=== PATIENT | male | born 1995 | race Caucasian/White ===

== ENCOUNTER 2016-05-21 18:00 | Emergency (ER) | payer SELFPAY ==
[2016-05-21 18:13] VITALS: RESP 16; TEMP 102.2
[2016-05-21] MEDS ORDERED: IBUPROFEN 600 MG TABLET PO ONE (18:15)
--- NOTE | 2016-05-21 23:30 | PDOC ---
Upper Respiratory HPI - General Chief Complaint: Cough / URI Stated Complaint: BODY ACHES AND URI S/S X 3 DAYS Date Seen by Provider: 05/21/16 Time Seen by Provider: 18:10 Source: POSITIVE: Patient Exam Limitations: POSITIVE: No limitations Nurse's Notes Reviewed & Considered: Yes - History of Present Illness Initial Comments: The patient is a 20-year-old male who presents to the emergency department with fever and chills, congestion and cough. He had onset of symptoms approximately 2 days ago. His cough initially seemed to be getting a little better however worsened today. His cough is occasionally productive although mostly dry. He had some nausea and vomiting for the first couple of days after onset of symptoms however this seems to be better today. He has been able to tolerate drinking liquids today. He does have associated muscle and joint aches. He has had some sore throat as well. He denies any history of asthma or other lung disease. He does smoke. - Patient Home Medications Home Medications: Home Medications Azithromycin [Zithromax] 250 mg PO DAILY #6 tab 05/21/16 Oseltamivir Phosphate [Tamiflu] 75 mg PO BID #10 capsule 05/21/16 guaiFENesin/Codeine Liquid [Robitussin AC Liquid] 5 - 10 ml PO Q6H PRN #120 ml 05/21/16 - Patient Allergies Allergies/Adverse Reactions: Allergies Allergy/AdvReac Type Severity Reaction Status Date / Time No Known Allergies Allergy Verified 05/21/16 18:05 Past Medical History - heen HEENT History: Denies History Cardiovascular History: Denies History Respiratory History: Denies History Gastrointestinal History: Denies History Genitourinary History: Denies History Endocrine History: Denies History Musculoskeletal History: Other (please comment) Prosthesis or Implant: No Additional Musculoskeletal History: L WRIST FX Neurological History: Denies History Blood Disorders: Denies History Psychiatric History: Denies History History of Sexually Transmitted Diseases: No Cancer History: Denies History In Past Year Been Physically Harmed or Verbally Threatened: No History of MDRO: No History of Other Communicable Diseases: No Tobacco Use: Current Every Day Smoker Alcohol Use: Rarely Substance Use Type: Marijuana Previous Surgical History: No Significant Family History: No pertinent family hx Past Medical History Reviewed: Reviewed - No Changes ROS - Limitations ROS Limitations: No Limitations Constitution: REPORTS: Chills, Fever Cardiovascular: REPORTS: Denies Cardiac Symptoms Respiratory: REPORTS: Cough Non Productive, Cough Productive. DENIES: Shortness Of Breath Neurological: REPORTS: Denies Neuro Symptoms Gastrointestinal: REPORTS: Nausea, Vomitting (Resolved over the last 24 hours) Endocrine: REPORTS: Fatigue Musculoskeletal: REPORTS: Joint Pain, Muscle Aches Eyes: REPORTS: Denies Symptoms ENT: REPORTS: Denies Symptoms Skin: DENIES: Rash Upper Respiratory/Fever Exam - General Appearance General Appearance: REPORTS: Alert, Cooperative, No Acute Distress - HEENT HEENT: POSITIVE: Head Inspection Nml, Eyes Inspection Nml, Ears Inspection Nml, Pharyngeal Erythema. NEGATIVE: Pharyngeal Exudate - Neck Neck: REPORTS: Normal Inspection. DENIES: Lymphadenopathy - Respiratory Respiratory: REPORTS: No Respiratory Distress, Breath Sounds Normal - Abdomen Abdomen: Soft: (All Quadrants), Denies Tenderness: (All Quadrants), No Distention: (All Quadrants) - Cardiovascular Cardiovascular: REPORTS: Regular Rate and Rhythm, Heart Sounds Normal Peripheral Pulses: Dorsalis-pedis (R): 2+, Dorsalis-pedis (L): 2+ - Skin Skin: REPORTS: Intact, No Rash - Extremities Extremity: Normal ROM: (All Extremities), Normal Inspection: (All Extremities) - Neurological / Psychological Neurological: POSITIVE: Oriented X3, Motor Normal, Sensation Normal Upper Resp/Fever Progress - Patient's Progress MDM / ED Course: The patient's clinical presentation is very consistent with influenza. Vital signs are stable other than elevated temperature. He was given a dose of ibuprofen 600 mg here in the emergency department for fever. He will be treated empirically with Tamiflu for treatment of influenza. In addition he does have a history of smoking and his cough has worsened over the past 24 hours. He was started on Zithromax 500 mg today followed by 250 mg daily for 4 days. He was given a prescription for Robitussin with codeine as needed for cough. He is advised to push fluids. He is advised return to the emergency room if he develops increased shortness of breath, dehydration, any worsening or change in symptoms. He'll follow-up with primary care if no improvement in 3 -5 days. - Consult Counseled: POSITIVE: Patient, RE: DX, RE: Need for F/U Patient Care Time - Estimated PCT Patient Care Time (In Minutes): 10 Vital Signs - VS Reviewed Vital Signs Reviewed: Yes Discharge Clinical Impression: Influenza, Bronchitis Condition: Stable Prescriptions / Orders: guaiFENesin/Codeine Liquid [Robitussin AC Liquid] 5 - 10 ml PO Q6H PRN #120 ml PRN Reason: Cough Oseltamivir Phosphate [Tamiflu] 75 mg PO BID #10 capsule Azithromycin [Zithromax] 250 mg PO DAILY #6 tab Patient Instructions Given at Discharge: Influenza (ED), Acute Bronchitis (ED) Additional Instructions: Your symptoms are very consistent with influenza and your be treated for this with Tamiflu 75 mg twice a day for 5 days. In addition he may have some bronchitis or early pneumonia and your started on Zithromax 500 mg today followed by 250 mg daily for 4 days. Recommend ibuprofen 600 mg every 6 hours as needed for pain/fever. Push fluids. He was also prescribed Robitussin with codeine which he can take one or 2 teaspoons every 6 hours as needed for cough. Return to the emergency room if increased shortness of breath, dehydration, any worsening or change in symptoms. Follow Up With: NONE,NONE [Primary Care Provider] -
== END 2016-05-21 18:26 | disposition home or self-care (01) ==
LOC: ER 18:00
DX: J09.X2 Influenza due to identified novel influenza A virus with other respiratory manifestations (principal); J20.9 Acute bronchitis, unspecified; R05 Cough; R11.2 Nausea with vomiting, unspecified
CPT/HCPCS: 99282

== ENCOUNTER 2016-08-11 21:24 | Emergency (ER) | payer OTHER ==
[2016-08-11] MEDS ORDERED: Sodium Chloride 0.9% 1,000 ML PRIMARY IV ONE ×2 (21:40→22:03)
[2016-08-11] MEDS ORDERED: ONDANSETRON 4 MG/2 ML VIAL IVP ONE ×2 (21:41→22:03)
[2016-08-11 22:02] LABS: BASOPHILS # (AUTO) 0.07 10*3/UL; BASOPHILS % (AUTO) 1.1 % (0-1); EOSINOPHILS # (AUTO) 0.54 10*3/UL; EOSINOPHILS % (AUTO) 8.2 % (0-8); HEMATOCRIT 43.1 % (42.0-52.0); HEMOGLOBIN 15.5 g/dL (14.0-18.0); LYMPHOCYTES # (AUTO) 1.87 10*3/uL; MEAN CORPUSCULAR HEMOGLOBIN 32.6 PG (27-31); MEAN CORPUSCULAR VOLUME 90.7 FL (80-90); MEAN PLATELET VOLUME 10.9 FL (7.4-12.2); MONOCYTES # (AUTO) 0.56 10*3/UL (0.3-0.8); MONOCYTES % (AUTO) 8.5 % (5-15); NEUTROPHILS # (AUTO) 3.54 10*3/UL; NEUTROPHILS % (AUTO) 53.6 % (50-80); PLATELET MORPHOLOGY COMMENT NORMAL MORPHOLOGY (NORM); RBC MORPHOLOGY COMMENT NORMAL MORPHOLOGY (NORM); RED BLOOD COUNT 4.75 10^6/uL (4.70-6.10); WBC MORPHOLOGY COMMENT NORMAL MORPHOLOGY (NORM)
[2016-08-11] MEDS ORDERED: KETOROLAC 15 MG/1 ML VIAL IVP ONE (22:03)
[2016-08-11 22:07] LABS: BLOOD UREA NITROGEN 16 mg/dL (7-22); CALCIUM 9.3 mg/dL (8.7-10.7); EST GLOMERULAR FILTRATION > 60 (>60 ml/min/1.73m(2)); SERUM ALBUMIN 4.6 g/dL (3.5-4.8)
--- NOTE | 2016-08-11 22:12 | PDOC ---
Gen Adult / Medical Screen HPI - General Chief Complaint: General Medical Stated Complaint: Fevers/Nausea Date Seen by Provider: 08/11/16 Time Seen by Provider: 22:06 Source: POSITIVE: Patient Exam Limitations: POSITIVE: No limitations Nurse's Notes Reviewed & Considered: Yes - Indicators Temperature Between 95 and 101 Degrees: Yes Respirations Between 12 and 20: Yes Blood Pressure Between 100-165 (sys) and 60-100 (martinez): Yes Pulse Range Between 60-105 (100 for age > 60 years): Yes Severe Pain (Greater than 5/10 Reported): No Chest or Abdominal Pain: No Inability to Walk: No Pt Reports Active High Risk Cond. (TB/Hepatitis/HIV/Chemo): No Abnormal Mental Status: No - History of Present Illness Initial Comments: This pleasant 21-year-old male comes in today with a chief complaint of nausea and vomiting and rash. Patient's nausea and vomiting has been going on today, his rash again after a tick bite near his umbilicus. His rash is a diffuse, discrete, well demarcated, hypopigmented areas. These lesions are not raised and are nonpalpable. They occur on his torso, on the anterior surface. There are approximately 5 lesions. His tick bite was several weeks ago. He denies any headache, no sore throat, no chest pain or shortness of breath, he does have a mild cough and is noted to be a smoker. He has been having nausea and vomiting today but no diarrhea. He does have fever and chills. He denies myalgias. He does have arthralgias that are exacerbated by lifting. He also has cramping in his left calf. Body Location Affected: REPORTS: Chest, Abdomen Timing: REPORTS: Abrupt, Getting Worse Duration: >1 week Similar Symptoms Previously: No Recent Care Received: REPORTS: Denies Any Prior Injuries Related to Current Complaint?: No - Patient Home Medications Home Medications: Home Medications NK [No Home Medications Reported] 08/11/16 - Patient Allergies Allergies/Adverse Reactions: Allergies Allergy/AdvReac Type Severity Reaction Status Date / Time No Known Allergies Allergy Verified 08/11/16 21:40 Past Medical History - heen HEENT History: Denies History Cardiovascular History: Denies History Respiratory History: Denies History Gastrointestinal History: Denies History Genitourinary History: Denies History Endocrine History: Denies History Musculoskeletal History: Other (please comment) Prosthesis or Implant: No Additional Musculoskeletal History: L WRIST FX Neurological History: Denies History Blood Disorders: Denies History Psychiatric History: Denies History History of Sexually Transmitted Diseases: No Cancer History: Denies History History of MDRO: No History of Other Communicable Diseases: No Alcohol Use: Rarely Substance Use Type: Marijuana Previous Surgical History: No Significant Family History: No pertinent family hx ROS - Limitations ROS Limitations: No Limitations Constitution: REPORTS: Fever Cardiovascular: REPORTS: Denies Cardiac Symptoms Respiratory: REPORTS: Cough Non Productive Neurological: REPORTS: Denies Neuro Symptoms Gastrointestinal: REPORTS: Nausea, Vomitting Endocrine: REPORTS: Denies Symptoms Musculoskeletal: REPORTS: Joint Pain (Predominantly his spine, hips, and knees.) Genitourinary: REPORTS: Denies Symptoms Eyes: REPORTS: Denies Symptoms ENT: REPORTS: Denies Symptoms Skin: REPORTS: Rash Lympathic: REPORTS: Denies Lympathic Symptoms Immunologic: POSITIVE: Denies Symptoms Psychiatric: POSITIVE: Denies Psych Symptoms Gen Adult/Medical Screen Exam - General Appearance General Appearance: POSITIVE: Alert, Cooperative, No Acute Distress, No Evidence of Trauma - HEENT HEENT: POSITIVE: Head Inspection Nml, Eyes Inspection Nml, Ears Inspection Nml, Nose Inspection Nml, PERRL, EOMI - Pupils Pupil Size: 5 mm: Bilateral - Neck Neck: POSITIVE: Normal Inspection, Thyroid Normal - Respiratory Respiratory: POSITIVE: No Respiratory Distress, Breath Sounds Normal, Chest Non- Tender - Cardiovascular Cardiovascular: POSITIVE: Regular Rate & Rhythm, No Murmur, No Gallop, PMI Normal - Abdomen Abdomen: Soft: (All Quadrants), Normal Bowel Sounds: (All Quadrants), Denies Tenderness: (All Quadrants) - Back Back: POSITIVE: Normal Inspection - Neurological / Psychological Mental Status: POSITIVE: Mood Normal, Affect Normal Orientation: POSITIVE: Oriented x 3 - Skin Skin: POSITIVE: Normal Color, Warm, Dry, Rash (Rash is well demarcated, scattered, hypopigmented lesions that are approximately one quarter to a half centimeter in diameter. They are nonpalpable.) - Extremities Extremity: Non-Tender: (All Extremities), Normal ROM: (All Extremities), Normal Inspection: (All Extremities), Pelvis Stable: (All Extremities) Procedures - Laceration/Wound Repair Did patient have a laceration repair: No Gen Adlt/Medical Scrn Progress - Results Reviewed by me Lab Results Reviewed: Yes Lab Results:: Laboratory Results 08/11/16 Range/Units 21:50 WBC 6.59 (4.8-10.8) 10^3/uL RBC 4.75 (4.70-6.10) 10^6/uL Hgb 15.5 (14.0-18.0) g/dL Hct 43.1 (42.0-52.0) % MCV 90.7 H (80-90) FL MCH 32.6 H (27-31) PG MCHC 36.0 (33-37) g/dL RDW Std Deviation 40.3 (39-50) fL RDW Coeff of Barak 12.4 (11.5-14.5) % Plt Count 243 (140-350) 10*3/uL MPV 10.9 (7.4-12.2) FL Immature Gran % (Auto) 0.2 (0-5) % Neut % (Auto) 53.6 (50-80) % Lymph % (Auto) 28.4 (10-50) % Bonner % (Auto) 8.5 (5-15) % Eos % (Auto) 8.2 H (0-8) % Baso % (Auto) 1.1 H (0-1) % Immature Gran # (Auto) 0.01 10*3/UL Neut # (Auto) 3.54 10*3/UL Lymph # (Auto) 1.87 10*3/uL Bonner # (Auto) 0.56 (0.3-0.8) 10*3/UL Eos # (Auto) 0.54 10*3/UL Baso # (Auto) 0.07 10*3/UL WBC Morphology Comment Normal morphology (NORM) Plt Morphology Comment Normal morphology (NORM) RBC Morph Comment Normal morphology (NORM) ESR 5 (0-15) MM/HR Sodium 140 (135-145) meq/L Potassium 3.7 L (3.8-5.2) meq/L Chloride 102 (98-112) meq/L Carbon Dioxide 26 (23-33) meq/L Anion Gap 12 (5-20) BUN 16 (7-22) mg/dL Creatinine 1.3 (0.70-1.50) mg/dL Estimated GFR > 60 (>60 ml/min/1.73m(2)) BUN/Creatinine Ratio 12.30 (6-20) Glucose 88 (78-110) mg/dL Calculated Osmolality 289.0 (267-292) mOsm/kg Calcium 9.3 (8.7-10.7) mg/dL Magnesium 1.9 (1.6-2.4) mg/dL Total Bilirubin 0.8 (0.3-1.2) mg/dL AST 37 (21-57) IU/L ALT 45 (21-72) IU/L Alkaline Phosphatase 45 (38-126) IU/L C-Reactive Protein < 0.5 (0.0-0.9) mg/dL Total Protein 7.4 (6.1-8.0) g/dL Albumin 4.6 (3.5-4.8) g/dL Globulin 2.8 (2.50-4.10) g/dL Albumin/Globulin Ratio 1.60 (1.3-2.0) mg/g - Patient's Progress Pain Medication Addressed: POSITIVE: Yes Re-Examine Time: 23:14 Status: POSITIVE: Improved MDM / ED Course: Patient was examined, an IV started, blood drawn and sent to the lab for studies. He received a liter of normal saline, Toradol, and Zofran. His symptoms improved. Findings: Rickettsial panel is pending, CBC is within normal limits, comprehensive metabolic panel was within normal limits. Inflammatory markers are normal. Assessment: #1 nausea and vomiting. #2 rash of uncertain etiology. Next Plan: Discharge home with Zofran, clear liquids through tomorrow, advance diet as tolerated, Tylenol and ibuprofen as necessary. Follow-up for rickettsial panel. Patient Care Time - Estimated PCT Patient Care Time (In Minutes): 20 Vital Signs - Recent Vital Signs Vital Signs: Vital Signs (Last 8 hours) Temp Pulse Resp BP Pulse Ox 08/11/16 21:24 98.2 F 87 16 140/87 96 - VS Reviewed Vital Signs Reviewed: Yes Discharge Clinical Impression: Nausea and vomiting Discharge Disposition: Discharged to Home Condition: Stable Patient Instructions Given at Discharge: Acute Nausea and Vomiting (ED)
[2016-08-11 22:20] LABS: MAGNESIUM 1.9 mg/dL (1.6-2.4)
[2016-08-11 22:21] LABS: C-REACTIVE PROTEIN < 0.5 mg/dL (0.0-0.9)
[2016-08-11 22:42] VITALS: RESP 16; TEMP 98.2
[2016-08-11] MEDS ORDERED: Ondansetron ODT Tab 8 MG TAB PO SCH (23:15)
[2016-08-12] MEDS ORDERED: Ondansetron ODT Tab 4 MG TAB PO ONE (00:05)
[2016-08-12] MEDS ORDERED: Ondansetron ODT Tab 4 MG TAB PO SCH (00:15)
[2016-08-14 13:40] LABS: EHFLICHIA CHAFFEENSIS IGG <1:64 titer (<1:64)
== END 2016-08-12 00:21 | disposition home or self-care (01) ==
LOC: ER 21:24
DX: R11.2 Nausea with vomiting, unspecified (principal); R21 Rash and other nonspecific skin eruption; R05 Cough
CPT/HCPCS: 80053; 83735; 85025; 85652; 86140; 96361; 96374; 96375; 99283; J1885; J2405; J7030